=== PATIENT | female | born 1955 | race Caucasian/White ===

== ENCOUNTER 2017-09-12 08:30 | Emergency (ER) | payer OTHER ==
[2017-09-12] MEDS: Nitroglycerin 0.4 MG Tab.SL SL PRN ×3 (08:50→09:14)
[2017-09-12] MEDS ORDERED: Aspirin 81 MG Tab.Chew PO ONE (08:52)
--- NOTE | 2017-09-12 09:12 | EDM.PDOC ---
ED HPI GENERAL MEDICAL PROBLEM - General Chief Complaint: Chest Pain Stated Complaint: CP Time Seen by Provider: 09/12/17 08:55 Source of Information: Reports: Patient History Limitations: Reports: No Limitations - History of Present Illness INITIAL COMMENTS - FREE TEXT/NARRATIVE: Amy is a 62 year old female, with a PMH of hypertension, hyperlipidemia, hypothyroidism, and gout, who presents to the ED with complaints of left sided chest pain. She reports that the pain started when she woke up this morning. She describes the pain as a constant ache. Denies radiation of the pain. Does report the pain worsens when she takes a deep breath, making her feel somewhat short of breath. Reports she has otherwise been feeling well. Denies any recent illness or injury to affected area. Denies any nausea, vomiting, diarrhea, abdominal pain, urinary symptoms. No other associated symptoms. She did not take anything at home prior to presentation for the pain. Onset: Today Duration: Constant Location: Reports: Chest Quality: Reports: Ache, Dull Severity: Moderate Improves with: Reports: None Associated Symptoms: Reports: Chest Pain, Shortness of Breath. Denies: Confusion, Cough, cough w sputum, Diaphoresis, Fever/Chills, Headaches, Loss of Appetite, Malaise, Nausea/Vomiting, Rash, Seizure, Syncope, Weakness Left Upper Chest Pain Score (Numeric/FACES): 4 - Related Data Allergies Allergy/AdvReac Type Severity Reaction Status Date / Time No Known Allergies Allergy Verified 09/12/17 08:45 Home Meds: Home Meds Allopurinol [Zyloprim] 300 mg PO DAILY 09/12/17 [History] Levothyroxine 125 mg PO DAILY 09/12/17 [History] Nabumetone [Relafen] 750 mg PO BID PRN 09/12/17 [History] amLODIPine Besylate/Benazepril [Amlodipine-Benazepril 10-20 MG] 10 - 20 mg PO DAILY 09/12/17 [History] traMADol HCl [Tramadol HCl] 50 mg PO DAILY PRN 09/12/17 [History] Past Medical History Cardiovascular History: Reports: High Cholesterol, Hypertension Endocrine/Metabolic History: Reports: Hypothyroidism Social & Family History - Family History Family Medical History: Noncontributory - Tobacco Use Smoking Status *Q: Never Smoker - Caffeine Use Caffeine Use: Reports: Coffee - Recreational Drug Use Recreational Drug Use: No ED ROS GENERAL - Review of Systems Review Of Systems: See Below Constitutional: Denies: Fever, Chills, Malaise, Weakness, Fatigue, Diaphoresis HEENT: Reports: No Symptoms Respiratory: Reports: Shortness of Breath, Pleuritic Chest Pain. Denies: Wheezing, Cough, Sputum, Hemoptysis Cardiovascular: Reports: Chest Pain, Edema. Denies: Blood Pressure Problem, Dyspnea on Exertion, Lightheadedness, Orthopnea, Palpitations, Syncope Endocrine: Reports: No Symptoms GI/Abdominal: Reports: No Symptoms. Denies: Abdominal Pain, Constipation, Diarrhea, Decreased Appetite, Nausea, Vomiting : Reports: No Symptoms. Denies: Dysuria, Frequency, Urgency Musculoskeletal: Reports: No Symptoms. Denies: Shoulder Pain, Arm Pain Skin: Reports: No Symptoms. Denies: Cyanosis, Pallor Neurological: Reports: No Symptoms. Denies: Confusion, Dizziness, Headache, Numbness, Tingling Psychiatric: Reports: No Symptoms Hematologic/Lymphatic: Reports: No Symptoms Immunologic: Reports: No Symptoms ED EXAM, GENERAL - Physical Exam Exam: See Below Exam Limited By: No Limitations General Appearance: Alert, WD/WN, No Apparent Distress Eye Exam: Bilateral Eye: EOMI, PERRL Head: Atraumatic, Normocephalic Neck: Normal Inspection, Supple, Non-Tender, Full Range of Motion Respiratory/Chest: No Respiratory Distress, Lungs Clear, Normal Breath Sounds, No Accessory Muscle Use, Chest Non-Tender Cardiovascular: Normal Peripheral Pulses, Regular Rate, Rhythm, No Edema, No Gallop, No JVD, No Murmur, No Rub Peripheral Pulses: 2+: Dorsalis Pedis (L), Dorsalis Pedis (R) GI/Abdominal: Normal Bowel Sounds, Soft, Non-Tender, No Organomegaly, No Distention, No Abnormal Bruit, No Mass Back Exam: Normal Inspection, Full Range of Motion, NT Extremities: Normal Range of Motion, Non-Tender, Normal Capillary Refill, Pedal Edema (+1 pittined edema) Neurological: Alert, Oriented, CN II-XII Intact, Normal Cognition, Normal Gait, Normal Reflexes, No Motor/Sensory Deficits Psychiatric: Normal Affect, Normal Mood Skin Exam: Warm, Dry, Intact, Normal Color, No Rash Lymphatic: No Adenopathy Course - Vital Signs Last Recorded V/S: Last Vital Signs Temp 98.4 F 09/12/17 08:59 Pulse 73 09/12/17 09:14 Resp 20 09/12/17 08:59 BP 131/82 09/12/17 09:14 Pulse Ox 96 09/12/17 08:59 - Orders/Labs/Meds Orders: Active Orders 24 hr Category Date Time Status Chest 2V [CR] Routine Exams 09/12/17 Taken CULTURE URINE [RM] Stat Lab 09/12/17 09:50 Received Labs: Laboratory Tests 09/12/17 09/12/17 09/12/17 Range/Units 08:56 08:56 08:56 WBC 8.0 (5.0-10.0) 10^3/uL RBC 4.49 (4.00-5.50) 10^6/uL Hgb 13.4 (12.0-16.0) g/dL Hct 40.7 (37.0-47.0) % MCV 90.6 (82.0-94.0) fL MCH 29.8 (27.0-32.0) pg MCHC 32.9 L (33.0-38.0) g/dL RDW Coeff of Reza 13.4 (11.0-15.0) % Plt Count 280 (150-400) 10^3/uL Neut % (Auto) 59.2 (35-85) % Lymph % (Auto) 29.0 (10-55) % [place] % (Auto) 6.9 (0-16) % Eos % (Auto) 4.1 (0-5) % Baso % (Auto) 0.8 (0-3) % Neut # (Auto) 4.74 (1.80-7.00) 10^3/uL Lymph # (Auto) 2.32 (1.00-4.80) 10^3/uL [place] # (Auto) 0.55 (0.00-0.80) 10^3/uL Eos # (Auto) 0.33 (0.00-0.45) 10^3/uL Baso # (Auto) 0.06 10^3/uL PT 9.8 (9.7-12.3) SEC INR 0.91 L (0.92-1.18) APTT 25.6 (20.0-45.0) SEC Sodium 141 (136-145) mEq/L Potassium 4.4 (3.5-5.0) mEq/L Chloride 104 (98-106) mEq/L Carbon Dioxide 28 (21-32) mmol/L BUN 17 (7-18) mg/dL Creatinine 0.7 (0.6-1.0) mg/dL Est Cr Clr Drug Dosing 75.94 mL/min Estimated GFR (MDRD) > 60 (>=60) mL/min Glucose 103 H (75-99) mg/dL Calcium 9.6 (8.4-10.1) mg/dL Lactate Dehydrogenase 169 (100-190) U/L Creatine Kinase 102 (21-215) U/L Troponin I < 0.017 (0.00-0.06) ng/mL Urine Color (YELLOW) Urine Appearance (CLEAR) Urine pH (4.5-8.0) Ur Specific [place] (1.003-1.020) Urine Protein (NEGATIVE) mg/dL Urine Glucose (UA) (NEGATIVE) mg/dL Urine Ketones (NEGATIVE) mg/dL Urine Occult Blood (NEGATIVE) Urine Nitrite (NEGATIVE) Urine Bilirubin (NEGATIVE) Urine Urobilinogen (0.2-1.0) EU/dL Ur Leukocyte Esterase (NEGATIVE) Urine RBC (0-5) /HPF Urine WBC (0-5) /HPF Ur Squamous Epith Cells (NOT SEEN) /HPF 09/12/17 Range/Units 09:15 WBC (5.0-10.0) 10^3/uL RBC (4.00-5.50) 10^6/uL Hgb (12.0-16.0) g/dL Hct (37.0-47.0) % MCV (82.0-94.0) fL MCH (27.0-32.0) pg MCHC (33.0-38.0) g/dL RDW Coeff of Reza (11.0-15.0) % Plt Count (150-400) 10^3/uL Neut % (Auto) (35-85) % Lymph % (Auto) (10-55) % [place] % (Auto) (0-16) % Eos % (Auto) (0-5) % Baso % (Auto) (0-3) % Neut # (Auto) (1.80-7.00) 10^3/uL Lymph # (Auto) (1.00-4.80) 10^3/uL [place] # (Auto) (0.00-0.80) 10^3/uL Eos # (Auto) (0.00-0.45) 10^3/uL Baso # (Auto) 10^3/uL PT (9.7-12.3) SEC INR (0.92-1.18) APTT (20.0-45.0) SEC Sodium (136-145) mEq/L Potassium (3.5-5.0) mEq/L Chloride (98-106) mEq/L Carbon Dioxide (21-32) mmol/L BUN (7-18) mg/dL Creatinine (0.6-1.0) mg/dL Est Cr Clr Drug Dosing mL/min Estimated GFR (MDRD) (>=60) mL/min Glucose (75-99) mg/dL Calcium (8.4-10.1) mg/dL Lactate Dehydrogenase (100-190) U/L Creatine Kinase (21-215) U/L Troponin I (0.00-0.06) ng/mL Urine Color Yellow (YELLOW) Urine Appearance Clear (CLEAR) Urine pH 7.0 (4.5-8.0) Ur Specific [place] 1.010 (1.003-1.020) Urine Protein Negative (NEGATIVE) mg/dL Urine Glucose (UA) Negative (NEGATIVE) mg/dL Urine Ketones Negative (NEGATIVE) mg/dL Urine Occult Blood Negative (NEGATIVE) Urine Nitrite Negative (NEGATIVE) Urine Bilirubin Negative (NEGATIVE) Urine Urobilinogen 0.2 (0.2-1.0) EU/dL Ur Leukocyte Esterase Trace H (NEGATIVE) Urine RBC Not seen (0-5) /HPF Urine WBC 0-5 (0-5) /HPF Ur Squamous Epith Cells Occasional H (NOT SEEN) /HPF Meds: Medications Discontinued Medications Generic Name Dose Route Start Last Admin Trade Name Freq PRN Reason Stop Dose Admin Aspirin 324 mg 09/12/17 08:52 09/12/17 08:50 Aspirin PO 09/12/17 08:53 324 mg ONETIME ONE Administration Nitroglycerin 0.4 mg 09/12/17 08:51 09/12/17 09:14 Nitrostat SL 0.4 mg Q5M PRN Administration Chest Pain - Re-Assessments/Exams Free Text/Narrative Re-Assessment/Exam: 09/12/17 10:10 Discussed labs, EKG, and CXR results with patient. All labs stable. EKG shows NSR. CXR negative. Further discussed causes of chest pain with patient. I do feel this pain is pleuritic, given pain increases with deep breath. Recommend she follow up with her PCP next week for her annual physical. Departure - Departure Time of Disposition: 10:11 Disposition: Home, Self-Care 01 Condition: Good Clinical Impression: Pleuritic chest pain Gastroesophageal reflux disease Qualifiers: Esophagitis presence: esophagitis presence not specified Qualified Code(s): K21.9 - Gastro-esophageal reflux disease without esophagitis Instructions: Costochondritis, [id number], Heartburn, [id number], Nonspecific Chest Pain, [id number] Referrals: Halle Albright PA [Primary Care Provider] - Forms: ED Department Discharge Additional Instructions: Lab work is all stable. EKG normal. CXR negative. Chest pain not of cardiac origin. All cardiac enzymes normal Recommend patient trial course of omeprazole to see if symptoms are related to GERD Tylenol or ibuprofen as needed for pain May try ice or heat to affected area Follow up with [facility] next week for annual wellness. - My Orders Last 24 Hours: My Active Orders 09/12/17 Chest 2V [CR] Routine 09/12/17 09:50 CULTURE URINE [RM] Stat - Assessment/Plan Last 24 Hours: My Active Orders 09/12/17 Chest 2V [CR] Routine 09/12/17 09:50 CULTURE URINE [RM] Stat
[2017-09-12 09:17] LABS: CHLORIDE,CL 104 mEq/L (98-106); SODIUM,NA 141 mEq/L (136-145)
== END 2017-09-12 10:30 | disposition home or self-care (01) ==
LOC: CC.ED 08:30
DX: R07.81 Pleurodynia (principal); K21.9 Gastro-esophageal reflux disease without esophagitis; I10 Essential (primary) hypertension; E03.9 Hypothyroidism, unspecified; E78.00 Pure hypercholesterolemia, unspecified; M10.9 Gout, unspecified; Z79.899 Other long term (current) drug therapy
CPT/HCPCS: 36415; 71046; 80048; 81001; 82550; 83615; 84484; 85025; 85610; 85730; 87086; 87088; 93005; 99285; A9270

== ENCOUNTER 2023-06-12 10:18 | Emergency (ER) | payer OTHER ==
[2023-06-12] MEDS ORDERED: Sodium Chloride 0.9% 1,000 ML IV ONE (10:26)
[2023-06-12] MEDS ORDERED: HYDROmorphone 0.5 MG/0.5 ML Syringe IVPUSH ONE (11:43)
[2023-06-12] MEDS ORDERED: Ondansetron 4 MG/2 ML SDV IVPUSH PRN (11:44)
[2023-06-12] MEDS ORDERED: Sodium Chloride 0.9% 1,000 ML IV SCH (11:45)
[2023-06-12] MEDS ORDERED: cefTRIAXone 1 GM Vial IVPUSH ONE (11:54)
[2023-06-12] MEDS ORDERED: metroNIDAZOLE/Normal Saline 500 MG in Premix Bag 1 BAG IV ONE (11:54)
== END 2023-06-12 12:30 ==
LOC: CC.ED 10:18
DX: K85.90 Acute pancreatitis without necrosis or infection, unspecified (principal); K80.80 Other cholelithiasis without obstruction; E78.00 Pure hypercholesterolemia, unspecified; I10 Essential (primary) hypertension; E03.9 Hypothyroidism, unspecified; Z79.82 Long term (current) use of aspirin; Z79.899 Other long term (current) drug therapy
CPT/HCPCS: 36415; 83690; 96361; 96365; 96375; 99285; J0696; J1170; J3490; J7030

== ENCOUNTER 2025-03-07 04:03 | Emergency (ER) | payer MEDICARE, BC ==
[2025-03-07] MEDS ORDERED: fentaNYL 50 MCG/ML SDV IVPUSH ONE (04:15)
[2025-03-07] MEDS ORDERED: Succinylcholine 200 MG/10 ML MDV ONE (04:28)
[2025-03-07 04:29] LABS: BASOPHILS ABSOLUTE AUTO 0.11 10^3/uL (0.00-0.50); BASOPHILS PERCENT AUTO 0.4 % (0-1); EOSINOPHILS ABSOLUTE AUTO 0.47 10^3/uL (0.00-1.50); EOSINOPHILS PERCENT AUTO 1.7 % (0-6); IMMATURE GRAN ABSOLUTE AUTO 0.42 10^3/uL (0.00-0.49); IMMATURE GRAN PERCENT AUTO 1.5 % (0.0-4.9); LYMPHOCYTES ABSOLUTE AUTO 5.12 10^3/uL (0.60-5.00); LYMPHOCYTES PERCENT AUTO 18.4 % (24-44); MONOCYTES ABSOLUTE AUTO 1.35 10^3/uL (0.00-1.50); MONOCYTES PERCENT AUTO 4.9 % (0-10); NEUTROPHILS ABSOLUTE AUTO 20.31 x10^3/uL (1.80-8.00); NEUTROPHILS PERCENT AUTO 73.1 % (41-71); PLATELET COUNT,PLT 334 10^3/uL (150-400); RED BLOOD CELL COUNT 4.81 x10^6/uL (4.00-5.50)
[2025-03-07 04:42] LABS: ALANINE AMINOTRANSFERASE,ALT 31 U/L (12-78); ASPARTATE AMNIOTRANSFERASE,AST 24 U/L (15-37); BILIRUBIN TOTAL 0.4 mg/dL (0.0-1.0); BLOOD UREA NITROGEN,BUN 20 mg/dL (7-18); CARBON DIOXIDE,CO2 29 mmol/L (21-32); CHLORIDE,CL 98 mEq/L (98-106); CREATININE 1.0 mg/dL (0.6-1.0); GLUCOSE RANDOM 213 mg/dL (75-99); PROTEIN TOTAL,TP 8.6 g/dL (6.4-8.2); SODIUM,NA 141 mEq/L (136-145)
[2025-03-07] MEDS ORDERED: propofoL 1,000 MG/100 ML 100 ML ONE (04:43)
[2025-03-07 04:47] LABS: ESTIMATED GFR 61 mL/min (>=60); ETHANOL BLOOD MEDICAL < 3 mg/dL (0-3); POTASSIUM,K 2.8 mEq/L (3.5-5.0); WHITE BLOOD CELL COUNT,WBC 27.8 10^3/uL (4.0-11.0)
[2025-03-07] MEDS: fentaNYL 100 MCG/2 ML SDV ONE (04:50)
[2025-03-07] MEDS: Etomidate 2 MG/ML 10 ML SDV IVPUSH ONE (04:51)
[2025-03-07] MEDS ORDERED: VANCOmycin 1.5 GM/300 ML 1.5 GM in Premix Bag 1 BAG IV ONE (05:06)
[2025-03-07] MEDS: propofoL 1,000 MG/100 ML 100 ML IV SCH (05:14)
[2025-03-07 05:23] LABS: INR 0.92 (0.92-1.18); PTT,PARTIAL THROMBOPLSTIN TIME 23.1 SEC (20.0-30.0)
[2025-03-07] MEDS: Potassium Chloride 20 MEQ in Premix Bag 1 BAG IV ONE (05:36)
[2025-03-07] MEDS: niCARdipine/Normal Saline 20 MG in Premix Bag 1 BAG IV SCH (05:51)
[2025-03-07] MEDS ORDERED: niCARdipine/Normal Saline 200 ML ONE (06:59)
== END 2025-03-07 07:30 ==
LOC: CC.ED 04:03
DX: I62.9 Nontraumatic intracranial hemorrhage, unspecified (principal); D72.828 Other elevated white blood cell count; E87.20 Acidosis, unspecified; I10 Essential (primary) hypertension; E78.00 Pure hypercholesterolemia, unspecified; E03.9 Hypothyroidism, unspecified; Z79.899 Other long term (current) drug therapy; Z79.890 Hormone replacement therapy
CPT/HCPCS: 31500; 36415; 51702; 70450; 71045; 80053; 80307; 83605; 83735; 84484; 85025; 85610; 85730; 87040; 93010; 96365; 96366; 96368; 99291; 99292; J0330; J2543; J2704; J3010; J3480; J3490; J7030